=== PATIENT | female | born 1945 | race African-American/Black ===

== ENCOUNTER → 2017-04-15 | Day surgery (SDC) | payer BC ==
[~2017-04-15] MED LIST: ASPI-630 PO; ATOR20TA PO; Aspirin PO; CEPH-264 PO; DILT180C2 PO; GABA600T2 PO; HYDR25TA9 PO; IV RINGERS,LACTATED 1000ML 1,000 ML IV SCH; LIDOCAINE 1% PF 2 ML VIAL. ID PRN; LIDOCAINE 2% PF Vial for OR 5 ML VIAL. ONE; PROPOFOL 20 ML IV ONE; fentaNYL PF VIAL 100 MCG/2 ML VIAL IV PRN
--- NOTE | 2017-04-15 08:35 | PDOC1 ---
HISTORY & PHYSICAL H&P Alanis Servin [id number] 1945 03/25/2017 02:00 PM 07/21 [place] [facility] [address] [place] [address] Ph. [phone] Patient: Alanis Servin Date of : 1945 Date: 03/25/2017 2:00 PM Visit Type: Consult This 72 year old female presents for H/o colorectal polyp. History of Present Illness: 1. H/o colorectal polyp No prior screening. Risk Factors: h/o colon polyp. Pertinent negatives include abdominal pain, change in bowel habits, change in stool caliber, constipation, decreased appetite, diarrhea, melena, nausea, rectal bleeding, vomiting, weight gain and weight loss. Additional information: No family history of colon cancer, No family history of Crohn's/colitis and No NSAID/ASA use. INTAKE COMMENTS: Intake Comments: Nurse Note: the pt is here today to schedule a colonoscopy due to a hx of colon polyps in 2008. PROBLEM LIST: Problem Description Onset Date Chronic Notes Hypertension 03/25/2017 Y PAST MEDICAL/SURGICAL HISTORY (Detailed) Disease/disorder Onset Date Management Date Comments section Hypercholesterolemia Hypertension trigeminal neuralgia Medications (Active): Started Medication Directions Instruction Stopped Aspir-81 81 mg tablet,delayed release take 1 tablet by oral route every day atorvastatin 20 mg tablet take 1 tablet by oral route every day Cartia XT 180 mg capsule,extended release take 1 capsule by oral route every day gabapentin 600 mg tablet take 2 Tablet by oral route 3 times every day hydrochlorothiazide 25 mg tablet take 1 tablet by oral route every day Tylenol 325 mg tablet take 1 tablet by oral route every 4 hours as needed Vitamin D3 2,000 unit capsule Allergies: Ingredient Reaction Medication Name Comment NO KNOWN ALLERGIES REVIEW OF SYSTEMS System Neg/Pos Details Constitutional Negative Chills, fever, malaise, weight gain and weight loss. ENMT Negative Sore throat. Eyes Negative Double vision. Respiratory Negative Dyspnea and wheezing. Cardio Negative Chest pain and irregular heartbeat/palpitations. GI Positive See HPI. GI Negative Abdominal pain, change in bowel habits, change in stool caliber, constipation, decreased appetite, diarrhea, melena, nausea, see HPI, rectal bleeding and vomiting. Negative Dysuria and hematuria. Endocrine Negative Cold intolerance and heat intolerance. Psych Negative Anxiety. Integumentary Negative Hives and rash. MS Negative Joint pain. Kwesi/Lymph Negative Easy bleeding and easy bruising. Allergic/Immuno Negative Food allergies. VITAL SIGNS Time BP mm/Hg Pulse /min Resp /min Temp F Ht ft Ht in Ht cm Wt lb Wt kg BMI kg/ m2 BSA m2 O2 Sat% 1:46 PM 132/78 76 98.3 5.0 8.00 172.72 188.40 85.457 28.65 95 Time Measured by 1:46 PM Niru Rivera PHYSICAL EXAM: Exam Findings Details Constitutional Normal Well developed. Eyes Normal Conjunctiva - Right: Normal, Left: Normal. Sclera - Right: Normal, Left: Normal. Nasopharynx Normal Lips/teeth/gums - Normal. Neck Exam Normal Inspection - Normal. Thyroid gland - Normal. Respiratory Normal Inspection - Normal. Auscultation - Normal. Cardiovascular Normal Regular rate and rhythm. No murmurs, gallops, or rubs. Vascular Normal Pulses - Carotids: Normal, Femoral: Normal, Dorsalis pedis: Normal. Abdomen Normal Inspection - Normal. Anterior palpation - No guarding. No abdominal tenderness. No hepatic enlargement. No splenic enlargement. No hernia. No Ascites. Skin Normal Inspection - Normal. Extremity Normal No edema. Psychiatric Normal Oriented to time, place, person, and situation. Appropriate mood and effect. Assessment/Plan # Detail Type Description 1. Assessment History of colon polyps (Z86.010). Patient Plan schedule colonoscopy at Plan Orders Further diagnostic evaluations ordered today include(s) Colonoscopy to be performed today. She is to schedule a follow-up visit with Tania Lanier MD upon completion of work-up Electronically signed by: Tania Lanier MD 03/25/2017 02:40 PM Document generated by: Tania Lanier 03/25/2017 02:40 PM Roel Bautista MD, Family Practice; Lamin Escobedo MD Internal Medicine; Rajan Akers MD, Internal Medicine; Tom Lanier MD Internal Medicine; Tania Lanier MD, Gastroenterology; Mukesh Cox MD, Rheumatology, S. Hugh Combs, Physical Medicine/Rehab Tonny Sutton APRN ------ 04/15/17 Patient seen and examined. No change in H&P. TANIA LANIER MD Apr 15, 2017 08:35
[2017-04-15 09:15] VITALS: BP 156/71
== END | disposition home or self-care (01) ==
LOC: SURG 06:52
PROVIDERS: ATTEND Internal Medicine Gastroenterology
DX: Z09 Encounter for follow-up examination after completed treatment for conditions other than malignant neoplasm (principal); Z87.19 Personal history of other diseases of the digestive system; G62.9 Polyneuropathy, unspecified; E78.00 Pure hypercholesterolemia, unspecified; I10 Essential (primary) hypertension; F17.200 Nicotine dependence, unspecified, uncomplicated; Z82.49 Family history of ischemic heart disease and other diseases of the circulatory system; Z86.69 Personal history of other diseases of the nervous system and sense organs; Z83.3 Family history of diabetes mellitus
CPT/HCPCS: G0105; J2704; J2001